=== PATIENT | female | born 1970 | race Caucasian/White ===

== ENCOUNTER 2022-04-02 08:05 | Day surgery (SDC) | payer OTHER ==
[~2022-04-02] VITALS: Ht 157.5 cm; Wt 70.3 kg
[2022-04-02] MEDS ORDERED: ACETAMINOPHEN I.V. 1000 MG 100 ML IV ONE (12:30)
[2022-04-02] MEDS ORDERED: METOCLOPRAMIDE HCL 10 MG/2 ML VIAL IVP PRN (12:45)
[2022-04-02] MEDS ORDERED: LR 1,000 ML IV SCH (12:45)
[2022-04-02] MEDS ORDERED: MIDAZOLAM HCL 2 MG/2 ML VIAL (VERSED) IVP PRN (12:45)
[2022-04-02] MEDS ORDERED: HYDROmorphone 1 MG/ML INJ. CARTRIDGE IVP PRN ×2 (12:45)
[2022-04-02] MEDS ORDERED: MEPERIDINE HCL/PF 25 MG/ML DISP.SYRIN IVP PRN (12:45)
[2022-04-02] MEDS ORDERED: hydrALAZINE HCL 20 MG/ML VIAL IVP PRN (12:45)
[2022-04-02] MEDS ORDERED: HYDROcodone/ACETAMIN 5-325 MG TAB (NORCO/ VICODIN) PO PRN (14:00)
[2022-04-02] MEDS ORDERED: HYDROcodone/ACETAMIN 10-325 MG TAB PO PRN (14:00)
[2022-04-02] MEDS ORDERED: ONDANSETRON HCL 4 MG/2 ML VIAL IVP PRN (14:00)
[2022-04-02] MEDS ORDERED: SIMETHICONE 80 MG TAB.CHEW PO SCH (14:00)
[2022-04-02] MEDS ORDERED: KETOROLAC TROMETHAMINE 30 MG VIAL ONE (14:41)
[2022-04-02] MEDS ORDERED: SUGAMMADEX SODIUM 200 MG/2 ML VIAL IV ONE (14:41)
[2022-04-02] MEDS ORDERED: BUPIVACAINE /PF 0.25% 30 ML VIAL INJ ONE (14:41)
[2022-04-02] MEDS ORDERED: PROPOFOL 200MG/ 20ML VIAL (DIPRIVAN) IV ONE (14:41)
[2022-04-02] MEDS ORDERED: DESFLURANE 15 MIN GAS INH ONE (14:41)
[2022-04-02] MEDS ORDERED: LR 1,000 ML IV.SOLN IV ONE (14:41)
[2022-04-02] MEDS ORDERED: ROCURONIUM BROMIDE 10 MG/ML (ZEMURON) ONE (14:41)
[2022-04-02] MEDS ORDERED: CEFAZOLIN 2 GM IVPB PREMIX 50 ML IV ONE (14:41)
[2022-04-02] MEDS ORDERED: NS IRRIG SOLN 1000 ML IR ONE (14:41)
[2022-04-02] MEDS ORDERED: MIDAZOLAM HCL 5 MG/ML VIAL (VERSED) IV ONE (14:41)
[2022-04-02] MEDS ORDERED: DEXAMETHASONE SOD PHOSPHATE 4 MG/ML VIAL ONE (14:41)
[2022-04-02] MEDS ORDERED: ROPIVACAINE HCL/PF 0.2% EPIDURAL 100 ML PLAST..BAG ONE (14:41)
[2022-04-02] MEDS ORDERED: fentaNYL CITRATE/PF 100 MCG/2 ML AMP ONE (14:41)
[2022-04-02] MEDS ORDERED: LIDOCAINE 1% 10 MG/ML, 20 ML MDV ONE (14:41)
[2022-04-02] MEDS ORDERED: ONDANSETRON HCL 4 MG/2 ML VIAL ONE (14:41)
[2022-04-02] MEDS ORDERED: HYDROmorphone 1 MG/ML INJ. CARTRIDGE ONE (15:19)
[2022-04-02] MEDS ORDERED: KETOROLAC TROMETHAMINE 30 MG VIAL IM ONE (16:00)
[2022-04-02 16:05] VITALS: BP_SYST 127
[2022-04-02] MEDS ORDERED: HYDROcodone/ACETAMIN 10-325 MG TAB ONE (16:49)
[2022-04-02] MEDS ORDERED: SIMETHICONE 80 MG TAB.CHEW PO ONE (17:00)
== END 2022-04-02 17:30 | disposition home or self-care (01) ==
LOC: SMU 08:05 → SDS 08:05
PROVIDERS: ATTEND Specialist
DX: N93.8 Other specified abnormal uterine and vaginal bleeding (principal); R10.2 Pelvic and perineal pain; D25.0 Submucous leiomyoma of uterus; D25.1 Intramural leiomyoma of uterus; D25.2 Subserosal leiomyoma of uterus; Z20.822 Contact with and (suspected) exposure to COVID-19; Z79.899 Other long term (current) drug therapy
CPT/HCPCS: 36415 ×2; 58552; 64488; 88307; 87426; U0003; J3490 ×2; J0690; J1100; J1885; J2001; J2250; J2405; J2704; J2795; J3010; J1170; J7120; C1727; J0131; E0190